=== PATIENT | female | born 1990 | race Caucasian/White ===

== ENCOUNTER 2020-06-10 02:43 | Emergency (ER) | payer BC, MEDICAID ==
[~2020-06-10] VITALS: Ht 162.6 cm; Wt 54.5 kg
[~2020-06-10 02:43] MED LIST: CYCL-1 PO
[2020-06-10 02:51] VITALS: BP 121/72
[2020-06-10] MEDS ORDERED: AMOX500C2 PO (02:58)
== END 2020-06-10 03:11 | disposition home or self-care (01) ==
LOC: ER 02:44
DX: J03.90 Acute tonsillitis, unspecified (principal); Z72.89 Other problems related to lifestyle; Z98.890 Other specified postprocedural states; Z79.899 Other long term (current) drug therapy
CPT/HCPCS: 99283